=== PATIENT | male | born 1970 | race Hispanic/Latino ===

== ENCOUNTER 2017-10-23 13:16 | Outpatient (CLI) | payer OTHER | END 2017-10-23 13:17 | disposition home or self-care (01) | LOC: DTY/OP 13:16 | PROVIDERS: ATTEND Family Medicine | DX: E11.9 Type 2 diabetes mellitus without complications (principal) | CPT/HCPCS: 97802 ==

== ENCOUNTER 2022-05-30 12:43 | Inpatient (IN) | payer OTHER, SELFPAY ==
[2022-05-30] MEDS ORDERED: Clindamycin/D5W 900 mg/50 ml Premix Bag ONE (13:38)
[2022-05-30 14:13] LABS: #Basophils 0.1 thou/uL (0.0-0.2); #Eosinphils 0.1 thou/uL (0.0-0.7); #Lymphocytes 2.5 thou/uL (1.20-3.40); #Monocytes 1.1 thou/uL (0.11-0.59); #Neutrophils 10.7 thou/uL (1.40-6.50); %Basophils 0.4 % (0.0-1.0); %Lymphocytes 17.3 % (21.0-51.0); %Monocytes 7.8 % (0.0-10.0); %Neutrophils 73.5 % (42.0-75.0); Hemoglobin 12.9 g/dL (14.0-18.0); Mean Platelet Volume 9.2 fL (7.4-10.4); Platelet Count 313 10x3/uL (130-400); RBC Distribution Width 11.9 % (11.5-14.5); Red Blood Cell (RBC) Count 4.45 mill/uL (4.70-6.10); White Blood Cell (WBC) Count 14.5 10x3/uL (4.8-10.8)
[2022-05-30] MEDS ORDERED: Vancomycin 1.5 GRAM/300 ML BAG 1.5 GM in Premix Bag 1 BAG IVPB SCH (14:15)
[2022-05-30 14:24] LABS: ALT (SGPT) 20 U/L (8-55); AST (SGOT) 15 U/L (5-34); Alkaline Phosphatase 127 U/L (40-110); Anion Gap 13 mmol/L (10-20); BUN (Urea Nitrogen) 13 mg/dL (8.4-25.7); Bilirubin, Total 0.7 mg/dL (0.2-1.2); Calc. Creatinine Clearance 0 mL/min (70-130); Calcium 9.7 mg/dL (7.8-10.44); Carbon Dioxide 24 mmol/L (22-29); Chloride 99 mmol/L (98-107); Estimated GFR 91; Globulin 4.1 g/dL (2.4-3.5); Glucose 281 mg/dL (70-105); Potassium 3.9 mmol/L (3.5-5.1); Protein, Total 8.1 g/dL (6.0-8.3); Sodium 132 mmol/L (136-145)
[2022-05-30] MEDS ORDERED: Enoxaparin Sodium 40 MG/0.4 ML SYRINGE SC SCH (16:30)
[2022-05-30 16:38] LABS: Hemoglobin A1c 11.9 % (4.0-6.0)
[2022-05-30 18:06] VITALS: BMI 30.1
[2022-05-30] MEDS: Famotidine 20 MG TAB PO SCH (19:55)
[2022-05-30] MEDS ORDERED: Vancomycin 1 GM in Premix Bag 1 BAG IVPB SCH (21:00)
[2022-05-31 06:43] LABS: #Eosinphils 0.3 thou/uL (0.0-0.7); #Monocytes 1.3 thou/uL (0.11-0.59); #Neutrophils 9.7 thou/uL (1.40-6.50); %Basophils 0.3 % (0.0-1.0); %Eosinophils 1.8 % (0.0-10.0); %Neutrophils 67.8 % (42.0-75.0); Hemoglobin 11.4 g/dL (14.0-18.0); Mean Corpuscular HGB CONC 33.1 g/dL (32.0-36.0); Mean Corpuscular Hemoglobin 29.3 pg (27.0-31.0); Mean Corpuscular Volume 88.4 fl (78.0-98.0); Mean Platelet Volume 9.1 fL (7.4-10.4); Platelet Count 285 10x3/uL (130-400); RBC Distribution Width 11.7 % (11.5-14.5); Red Blood Cell (RBC) Count 3.89 mill/uL (4.70-6.10); White Blood Cell (WBC) Count 14.2 10x3/uL (4.8-10.8)
[2022-05-31 07:02] LABS: Anion Gap 14 mmol/L (10-20); BUN (Urea Nitrogen) 14 mg/dL (8.4-25.7); Calc. Creatinine Clearance 116 mL/min (70-130); Calcium 9.1 mg/dL (7.8-10.44); Carbon Dioxide 22 mmol/L (22-29); Chloride 104 mmol/L (98-107); Estimated GFR 106; Glucose 183 mg/dL (70-105); Sodium 136 mmol/L (136-145)
[2022-05-31] MEDS ORDERED: Dextrose 50% Abboject 50 ML SYRINGE SLOW IVP PRN (07:05)
[2022-05-31] MEDS ORDERED: Dextrose 5% in Water 1,000 ML IV PRN (07:05)
[2022-05-31] MEDS ORDERED: HumaLOG 300 UNITS/3 ML VIAL SC PRN (07:05)
[2022-05-31] MEDS: metFORMIN 500 MG TAB PO SCH ×3 (08:11→20:19)
[2022-05-31] MEDS: Famotidine 20 MG TAB PO SCH ×2 (08:11→20:18)
[2022-05-31] MEDS: Acetaminophen 325 MG TAB PO PRN ×2 (08:12→16:11)
[2022-05-31] MEDS: HumaLOG 300 UNITS/3 ML VIAL SC PRN ×2 (12:17→16:12)
[2022-05-31] MEDS: Vancomycin 1.5 GRAM/300 ML BAG 1.5 GM in Premix Bag 1 BAG IVPB SCH (14:31)
[2022-05-31] MEDS ORDERED: Piperacillin/Tazobactam 3.375 GM in Sodium Chloride 0.9% 100 ML IVPB SCH ×2 (15:30→16:15)
[2022-05-31] MEDS: Piperacillin/Tazobactam 3.375 GM in Sodium Chloride 0.9% 100 ML IVPB SCH (20:19)
[2022-06-01] MEDS ORDERED: Sodium Chloride 0.9% 1,000 ML IV SCH (00:01)
[2022-06-01] MEDS: Piperacillin/Tazobactam 3.375 GM in Sodium Chloride 0.9% 100 ML IVPB SCH ×3 (04:54→20:18)
[2022-06-01 06:24] LABS: #Eosinphils 0.3 thou/uL (0.0-0.7); #Lymphocytes 2.5 thou/uL (1.20-3.40); #Neutrophils 9.1 thou/uL (1.40-6.50); %Basophils 0.3 % (0.0-1.0); %Eosinophils 2.1 % (0.0-10.0); %Lymphocytes 19.2 % (21.0-51.0); %Monocytes 7.5 % (0.0-10.0); %Neutrophils 70.9 % (42.0-75.0); Hemoglobin 11.7 g/dL (14.0-18.0); Mean Corpuscular HGB CONC 32.1 g/dL (32.0-36.0); Mean Corpuscular Hemoglobin 28.3 pg (27.0-31.0); Mean Corpuscular Volume 88.2 fl (78.0-98.0); Mean Platelet Volume 8.8 fL (7.4-10.4); Platelet Count 316 10x3/uL (130-400); RBC Distribution Width 11.7 % (11.5-14.5); Red Blood Cell (RBC) Count 4.13 mill/uL (4.70-6.10); White Blood Cell (WBC) Count 12.8 10x3/uL (4.8-10.8)
[2022-06-01 06:34] LABS: INR-International Normal Ratio 1.1; PTT 36.3 sec (22.9-36.1); Prothrombin Time 14.4 sec (12.0-14.7)
[2022-06-01 06:48] LABS: Anion Gap 14 mmol/L (10-20); BUN (Urea Nitrogen) 13 mg/dL (8.4-25.7); Calc. Creatinine Clearance 126 mL/min (70-130); Calcium 8.9 mg/dL (7.8-10.44); Carbon Dioxide 24 mmol/L (22-29); Chloride 101 mmol/L (98-107); Estimated GFR 108; Glucose 189 mg/dL (70-105); Magnesium 1.8 mg/dL (1.6-2.6); Phosphorus 2.7 mg/dL (2.3-4.7); Potassium 3.8 mmol/L (3.5-5.1); Sodium 135 mmol/L (136-145)
[2022-06-01] MEDS ORDERED: Magnesium 2 GM/50 ML(in water) 2 GM in Premix Bag 1 BAG IVPB SCH (07:30)
[2022-06-01] MEDS ORDERED: Potassium Phosphate 15 MMOL, Magnesium Sulfate 2 GM in Sodium Chloride 0.9% 250 ML 250 ML IVPB SCH (09:00)
[2022-06-01] MEDS: Famotidine 20 MG TAB PO SCH ×2 (10:03→20:18)
[2022-06-01] MEDS ORDERED: Bupivacaine/Epinephrine 0.25% 30 ML VIAL ONE (13:09)
[2022-06-01] MEDS ORDERED: fentaNYL PF 100 MCG/2 ML SYRINGE ONE (13:19)
[2022-06-01] MEDS ORDERED: Famotidine/PF 20 mg/2ml Vial ONE (13:19)
[2022-06-01] MEDS ORDERED: Midazolam HCl 2 mg/2 ml Vial ONE (13:19)
[2022-06-01] MEDS ORDERED: Sodium Chloride 0.9% 100 ML ONE (13:21)
[2022-06-01] MEDS ORDERED: Piperacillin/Tazobactam 3.375 GM VIAL ONE (13:21)
[2022-06-01] MEDS ORDERED: Vancomycin (BATCH) 1.5 GRAM/300 ML BAG ONE (13:21)
[2022-06-01] MEDS ORDERED: PROPOFOL 200 MG/20 ML VIAL ONE (13:28)
[2022-06-01] MEDS ORDERED: Ondansetron PF 4 MG/2 ML Vial ONE (13:28)
[2022-06-01] MEDS ORDERED: Promethazine HCl 25 MG/ML VIAL IVPB PRN (14:20)
[2022-06-01] MEDS ORDERED: Ondansetron HCl/PF 4 MG/2 ML Vial IVP PRN (14:20)
[2022-06-01] MEDS ORDERED: Promethazine HCl 25 MG/ML VIAL IM PRN (14:20)
[2022-06-01] MEDS ORDERED: traMADol HCl 50 MG TAB PO PRN (14:20)
[2022-06-01] MEDS ORDERED: Acetaminophen 325 MG TAB PO SCH (14:30)
[2022-06-01] MEDS ORDERED: traMADol HCl 50 MG TAB PO SCH (14:30)
[2022-06-01] MEDS: Vancomycin 1.5 GRAM/300 ML BAG 1.5 GM in Premix Bag 1 BAG IVPB SCH (14:59)
[2022-06-01] MEDS: Acetaminophen 325 MG TAB PO SCH ×2 (17:01→20:19)
[2022-06-01] MEDS: traMADol HCl 50 MG TAB PO SCH (17:02)
[2022-06-01] MEDS: HumaLOG 300 UNITS/3 ML VIAL SC PRN (17:10)
[2022-06-01] MEDS: metFORMIN 500 MG TAB PO SCH (20:19)
[2022-06-02] MEDS: traMADol HCl 50 MG TAB PO SCH ×4 (01:07→18:29)
[2022-06-02] MEDS: Acetaminophen 325 MG TAB PO SCH ×3 (05:24→18:30)
[2022-06-02] MEDS: Piperacillin/Tazobactam 3.375 GM in Sodium Chloride 0.9% 100 ML IVPB SCH ×3 (05:25→21:12)
[2022-06-02] MEDS: HumaLOG 300 UNITS/3 ML VIAL SC PRN ×2 (05:25→12:41)
[2022-06-02 07:27] LABS: #Eosinphils 0.4 thou/uL (0.0-0.7); #Lymphocytes 2.2 thou/uL (1.20-3.40); #Monocytes 0.8 thou/uL (0.11-0.59); #Neutrophils 8.4 thou/uL (1.40-6.50); %Basophils 0.3 % (0.0-1.0); %Eosinophils 3.4 % (0.0-10.0); %Lymphocytes 18.8 % (21.0-51.0); %Monocytes 6.8 % (0.0-10.0); %Neutrophils 70.7 % (42.0-75.0); Hemoglobin 11.2 g/dL (14.0-18.0); Mean Corpuscular Hemoglobin 28.4 pg (27.0-31.0); Mean Corpuscular Volume 88.8 fl (78.0-98.0); Mean Platelet Volume 8.7 fL (7.4-10.4); Platelet Count 317 10x3/uL (130-400); RBC Distribution Width 11.4 % (11.5-14.5); Red Blood Cell (RBC) Count 3.93 mill/uL (4.70-6.10); White Blood Cell (WBC) Count 11.8 10x3/uL (4.8-10.8)
[2022-06-02 07:46] LABS: Anion Gap 12 mmol/L (10-20); BUN (Urea Nitrogen) 9 mg/dL (8.4-25.7); Calc. Creatinine Clearance 128 mL/min (70-130); Carbon Dioxide 25 mmol/L (22-29); Chloride 101 mmol/L (98-107); Estimated GFR 109; Glucose 216 mg/dL (70-105); Phosphorus 2.8 mg/dL (2.3-4.7); Potassium 3.8 mmol/L (3.5-5.1); Sodium 134 mmol/L (136-145)
[2022-06-02] MEDS ORDERED: glipiZIDE 5 MG TAB PO SCH (08:15)
[2022-06-02] MEDS: Famotidine 20 MG TAB PO SCH ×2 (08:34→21:11)
[2022-06-02] MEDS: metFORMIN 500 MG TAB PO SCH ×3 (08:34→21:11)
[2022-06-02 13:34] LABS: Vancomycin, Trough 1.8 ug/mL
[2022-06-02] MEDS: Vancomycin 1.5 GRAM/300 ML BAG 1.5 GM in Premix Bag 1 BAG IVPB SCH ×2 (16:03→16:47)
[2022-06-02] MEDS: glipiZIDE 5 MG TAB PO SCH (16:47)
[2022-06-03] MEDS: traMADol HCl 50 MG TAB PO SCH ×3 (00:01→12:10)
[2022-06-03] MEDS: Acetaminophen 325 MG TAB PO SCH ×4 (00:02→17:43)
[2022-06-03] MEDS: Vancomycin 1.5 GRAM/300 ML BAG 1.5 GM in Premix Bag 1 BAG IVPB SCH ×2 (03:04→15:18)
[2022-06-03] MEDS: Piperacillin/Tazobactam 3.375 GM in Sodium Chloride 0.9% 100 ML IVPB SCH ×3 (05:48→20:31)
[2022-06-03] MEDS: Famotidine 20 MG TAB PO SCH ×2 (08:06→20:31)
[2022-06-03] MEDS: glipiZIDE 5 MG TAB PO SCH ×2 (08:06→15:59)
[2022-06-03] MEDS: metFORMIN 500 MG TAB PO SCH ×3 (08:06→20:31)
[2022-06-03 08:08] LABS: #Eosinphils 0.4 thou/uL (0.0-0.7); #Lymphocytes 1.8 thou/uL (1.20-3.40); #Monocytes 0.9 thou/uL (0.11-0.59); #Neutrophils 7.5 thou/uL (1.40-6.50); %Basophils 0.4 % (0.0-1.0); %Eosinophils 4.2 % (0.0-10.0); %Lymphocytes 16.9 % (21.0-51.0); %Monocytes 8.5 % (0.0-10.0); Hemoglobin 11.3 g/dL (14.0-18.0); Mean Corpuscular HGB CONC 32.3 g/dL (32.0-36.0); Mean Corpuscular Hemoglobin 28.5 pg (27.0-31.0); Mean Corpuscular Volume 88.3 fl (78.0-98.0); Mean Platelet Volume 8.6 fL (7.4-10.4); Platelet Count 329 10x3/uL (130-400); RBC Distribution Width 11.7 % (11.5-14.5); Red Blood Cell (RBC) Count 3.95 mill/uL (4.70-6.10); White Blood Cell (WBC) Count 10.7 10x3/uL (4.8-10.8)
[2022-06-03 08:31] LABS: Anion Gap 12 mmol/L (10-20); BUN (Urea Nitrogen) 8 mg/dL (8.4-25.7); Calc. Creatinine Clearance 107 mL/min (70-130); Calcium 9.4 mg/dL (7.8-10.44); Carbon Dioxide 29 mmol/L (22-29); Chloride 103 mmol/L (98-107); Estimated GFR 103; Glucose 182 mg/dL (70-105); Potassium 3.9 mmol/L (3.5-5.1); Sodium 140 mmol/L (136-145)
[2022-06-03] MEDS: HumaLOG 300 UNITS/3 ML VIAL SC PRN ×2 (12:10→16:56)
[2022-06-03 14:26] LABS: Vancomycin, Trough 9.9 ug/mL
[2022-06-03] MEDS ORDERED: traMADol HCl 50 MG TAB PO PRN (15:09)
[2022-06-03] MEDS: VANCOMYCIN 1.75 GM/500 ML BAG 1.75 GM in Premix Bag 1 BAG IVPB SCH (15:59)
[2022-06-03] MEDS ORDERED: Ondansetron ODT 4 MG TAB PO PRN (18:00)
[2022-06-03] MEDS: Ondansetron PF 4 MG/2 ML Vial IVP PRN (18:29)
[2022-06-04] MEDS: Acetaminophen 325 MG TAB PO SCH ×3 (00:09→11:11)
[2022-06-04] MEDS: Ondansetron PF 4 MG/2 ML Vial IVP PRN (03:10)
[2022-06-04] MEDS: VANCOMYCIN 1.75 GM/500 ML BAG 1.75 GM in Premix Bag 1 BAG IVPB SCH (03:10)
[2022-06-04] MEDS: Piperacillin/Tazobactam 3.375 GM in Sodium Chloride 0.9% 100 ML IVPB SCH (05:44)
[2022-06-04 07:41] LABS: #Eosinphils 0.4 thou/uL (0.0-0.7); #Monocytes 0.9 thou/uL (0.11-0.59); %Basophils 0.3 % (0.0-1.0); %Eosinophils 3.1 % (0.0-10.0); %Monocytes 7.6 % (0.0-10.0); %Neutrophils 70.9 % (42.0-75.0); Hemoglobin 11.6 g/dL (14.0-18.0); Mean Corpuscular HGB CONC 33.2 g/dL (32.0-36.0); Mean Corpuscular Volume 90.3 fl (78.0-98.0); Mean Platelet Volume 8.2 fL (7.4-10.4); Platelet Count 364 10x3/uL (130-400); RBC Distribution Width 11.7 % (11.5-14.5); Red Blood Cell (RBC) Count 3.87 mill/uL (4.70-6.10); White Blood Cell (WBC) Count 11.3 10x3/uL (4.8-10.8)
[2022-06-04 08:09] LABS: Anion Gap 13 mmol/L (10-20); BUN (Urea Nitrogen) 8 mg/dL (8.4-25.7); Calc. Creatinine Clearance 121 mL/min (70-130); Calcium 9.3 mg/dL (7.8-10.44); Carbon Dioxide 26 mmol/L (22-29); Chloride 104 mmol/L (98-107); Estimated GFR 107; Glucose 109 mg/dL (70-105); Potassium 3.5 mmol/L (3.5-5.1); Sodium 139 mmol/L (136-145)
[2022-06-04] MEDS ORDERED: Potassium Chloride 20 MEQ TAB PO SCH (08:30)
[2022-06-04] MEDS: metFORMIN 500 MG TAB PO SCH (08:34)
[2022-06-04] MEDS: glipiZIDE 5 MG TAB PO SCH (08:35)
[2022-06-04] MEDS: Famotidine 20 MG TAB PO SCH (08:35)
[2022-06-04] MEDS ORDERED: Saccharomyces boulardii 250 MG CAP PO SCH (09:00)
[2022-06-04] MEDS ORDERED: Sulfameth/Trimethoprim DS 800-160mg TAB PO SCH (09:00)
[2022-06-04 12:58] VITALS: BP 149/86; TEMP 98.2
== END 2022-06-04 13:07 | disposition home or self-care (01) | DRG 872 ==
LOC: ERS 12:43 → T4-A 16:20 → OBSVTOIN 05-31 07:06
PROVIDERS: ADMIT Student in an Organized Health Care Education/Training Program; ATTEND Internal Medicine
PROC: 3E03329 Introduction of Other Anti-infective into Peripheral Vein, Percutaneous Approach (ICD-10-PCS; principal; 2022-05-31)
PROC: 0J9N3ZZ Drainage of Right Lower Leg Subcutaneous Tissue and Fascia, Percutaneous Approach (ICD-10-PCS; 2022-06-01)
DX: A41.9 Sepsis, unspecified organism (principal); L03.115 Cellulitis of right lower limb; E87.1 Hypo-osmolality and hyponatremia; L02.415 Cutaneous abscess of right lower limb; E11.65 Type 2 diabetes mellitus with hyperglycemia; R00.1 Bradycardia, unspecified; E83.42 Hypomagnesemia; E66.9 Obesity, unspecified; D53.9 Nutritional anemia, unspecified; Z79.84 Long term (current) use of oral hypoglycemic drugs; Z79.52 Long term (current) use of systemic steroids; Z91.14 Patient's other noncompliance with medication regimen; Z68.30 Body mass index [BMI] 30.0-30.9, adult
CPT/HCPCS: 36415; 36416; 76999; 80048; 80053; 80202; 83036; 83605; 83735; 84100; 84145; 85025; 85610; 85730; 86850; 86900; 86901; 87040; 87070; 87077; 87186; 87205; 87324; 87449; 93306; 96372; 97139; G0378; J1650; J1815; J2250; J2405; J2543; J2704; J3370; J3475; J3490; J7050; S0028; U0003; U0005

== ENCOUNTER 2024-05-03 14:38 | Emergency (ER) | payer OTHER, SELFPAY ==
[2024-05-03 14:59] LABS: #Basophils 0.04 10x3/uL (0.0-0.2); %Basophils 0.4 % (0.0-1.0); %Eosinophils 1.5 % (0.0-10.0); %Lymphocytes 28.4 % (21.0-51.0); %Monocytes 5.3 % (0.0-10.0); %Neutrophils 64.2 % (42.0-75.0); Hematocrit 39.4 % (42.0-52.0); Hemoglobin 12.9 g/dL (14.0-18.0); Mean Corpuscular HGB CONC 32.7 g/dL (32.0-36.0); Mean Corpuscular Hemoglobin 28.7 pg (27.0-31.0); Mean Corpuscular Volume 87.6 fL (78.0-98.0); Platelet Count 238 10x3/uL (130-400); RBC Distribution Width 12.4 % (11.5-14.5)
[2024-05-03 15:18] LABS: ALT (SGPT) 19 U/L (8-55); AST (SGOT) 18 U/L (5-34); Albumin 4.3 g/dL (3.5-5.0); Alkaline Phosphatase 99 U/L (40-110); Anion Gap 13 mmol/L (10-20); BUN (Urea Nitrogen) 23 mg/dL (8.4-25.7); Bilirubin, Total 0.4 mg/dL (0.2-1.2); Calc. Creatinine Clearance 0 mL/min (70-130); Calcium 9.4 mg/dL (7.8-10.44); Carbon Dioxide 24 mmol/L (22-29); Chloride 103 mmol/L (98-107); Estimated GFR 81; Globulin 3.4 g/dL (2.4-3.5); Glucose 267 mg/dL (70-105); Potassium 3.8 mmol/L (3.5-5.1); Protein, Total 7.7 g/dL (6.0-8.3); Sodium 136 mmol/L (136-145)
== END 2024-05-03 15:43 | disposition home or self-care (01) ==
LOC: ERS 14:38
DX: H43.12 Vitreous hemorrhage, left eye (principal); E11.65 Type 2 diabetes mellitus with hyperglycemia
CPT/HCPCS: 36415; 36416; 80053; 85025; 99284